=== PATIENT | female | born 1950 | race African-American/Black ===

== ENCOUNTER 2017-10-06 13:37 | Emergency (ER) | payer MEDICARE, MEDICAID ==
[~2017-10-06] VITALS: Ht 170.2 cm; Wt 72.6 kg
[~2017-10-06 13:37] MED LIST: ACETAMINOPHEN-1 EAC1 ORAL; ALBUTEROL SULF8.5 GM INH; ASPIRIN EC81 MG ORAL; ATIVAN0.5 MG PO; AZITHROMYCIN250 MG PO; BACTROBAN 2% OI15 GM TOPIC; BLEPHAMIDE EYE D5 ML LEFT EYE; BUPROPION HCL100 M1; CYCLOBENZAPRINE10 MG ORAL; GUAIFENESIN-CO118 M1 PO; HYDROCHLOROTH12.5 M2; IBUPROFEN600 MG ORAL; KEFLEX500 MG ORAL; NKM; NORCO 5-325 TA1 EACH ORAL; NORCO 5-325 TA1 EACH PO; TRAMADOL HCL100 M1 PO; TRAMADOL HCL100 M2 ORAL; TRAMADOL HCL50 MG PO; TYLENOL EXTRA500 MG ORAL; VICODIN ES 7.51 EACH PO; ZOFRAN ODT4 MG ORAL
--- NOTE | 2017-10-06 14:01 | Emergency Room Report ---
History of Present Illness General Chief Complaint: Upper Extremity Injury Source: Patient Present Illness HPI 67-year-old female no significant past medical history presenting with right hand pain. Patient states that last night she got her hand caught in a gait as it slammed shut onto her hand. States that it ripped off her index finger nail. No bleeding. Neck worsening of pain and swelling to her hand increased with any movement. She has not taken any pain medication. she does not like to take pills. denies any numbness or tingling to her hand Allergies: Coded Allergies: CODEINE (Verified Adverse Reaction, Mild, NAUSEATED, 12/29/11) Patient History Past Medical History: see triage record Past Surgical History: none Pertinent Family History: none Reviewed Nursing Documentation: PMH: Agreed; PSxH: Agreed Nursing Documentation-PMH Past Medical History: No History, Except For Hx Cardiac Problems: Yes - brain aneurysm Hx Hypertension: Yes Hx Neurological Problems: Yes Hx Cerebrovascular Accident: Yes Review of Systems All Other Systems: negative except mentioned in HPI Physical Exam Vital Signs Date Time Temp Pulse Resp B/P (MAP) Pulse Ox O2 Delivery O2 Flow Rate FiO2 10/06/17 13:46 98.0 83 16 162/80 95 Room Air 98.1 Sp02 EP Interpretation: reviewed, normal General Appearance: normal inspection, well appearing, no apparent distress, alert, GCS 15, non-toxic Head: normocephalic, atraumatic Eyes: bilateral eye normal inspection, bilateral eye PERRL, bilateral eye EOMI ENT: normal ENT inspection, normal pharynx, normal voice, moist mucus membranes Neck: normal inspection, full range of motion, supple Respiratory: normal inspection, lungs clear, normal breath sounds, no respiratory distress, no retraction, no wheezing, speaking full sentences, chest symmetrical Cardiovascular #1: normal inspection, regular rate, rhythm, no edema, normal capillary refill Cardiovascular #2: 2+ radial (R), 2+ radial (L) Gastrointestinal: normal inspection, non tender, soft, non-distended, no guarding Musculoskeletal: other - Right hand dorsum noted to have some edema and tender to palpation this is increased with movement however patient does have full range of motion. No snuffbox tenderness. No gross bony deformity. Has full range of motion of wrist. Limited flexion of second and third digit from the MCP joint. Thumb cannot extend and there is inc swelling at MCP joint. however thumb can oppose to other fingers. However otherwise full range of motion of all other fingers. Median ulnar and radial nerve is intact. Radial pulses intact Neurologic: normal inspection, alert, oriented x3, responsive, motor strength/ tone normal, sensory intact, normal gait, speech normal Psychiatric: normal inspection, judgement/insight normal, memory normal Skin: normal inspection, normal color, no rash, warm/dry, well hydrated, normal turgor Procedures Splinting Splinting : Consent: Verbal Location: thumb spica Pre-Made Type: velcro Hand-Made Type: Splint: thumb spica Pre-Proc Neuro Vasc Exam: normal Post-Proc Neuro Vasc Exam: normal Patient Tolerated: Well Complications: None Medical Decision Making Diagnostic Impression: Primary Impression: Dislocation of right thumb Additional Impression: Fracture of third metacarpal bone ER Course 67-year-old female with right hand pain DDX: Contusion vs. fracture Plan: Pain control offered but patient states that she does not like to take any pain medication pills XR ER course: X-ray revealing slight thumb subluxation as well as third metacarpal fracture. I attempted reduction with 1% lidocaine digital block, 4 mL used. Adequate anesthesia obtained. However unable to reduce thumb, extremely unstable I consulted orthopedics, but states that he does not do hand injuries I then consulted to other orthopedic doctors (total 3) however no one is available to come in, or they do not to "hand" injuries anymore. We also called an orthopedic urgent care, but could not take the pt as it is appt only Called [facility], who rejected the case and said this "does not require higher level of care" At this point patient was waiting several hours, she signed out AGAINST MEDICAL ADVICE, states that she can go to [facility] immediately after this. Patient was told that if she does not get her some reduced seen and that this could lead to permanent disability of her thumb. She verbalized understanding Disposition: Patient left AGAINST MEDICAL ADVICE She states that she will go to [facility] right now to see an orthopedic doctor to reduce her thumb Please note that this Emergency Department Report was dictated using [employer] clerk technology software, occasionally this can lead to erroneous entry secondary to interpretation by the dictation equipment. Xray ordered: Right hand 3 view Indication: Pain EP Interpretation: Yes There is suspicion of the nondisplaced acute fracture involving the shaft of the third metacarpal. Please correlate clinically. The bones are osteopenic. Moderate degenerative changes of the first MCP joint of the thumb noted. This joint is mildly subluxed. Arthrosis noted with osteophytes and joint space narrowing involving several interphalangeal joints as well. IMPRESSION: Suspected acute nondisplaced fracture of the third metacarpal Read by radiology Electronically signed by Chiara Barragan MD Xray: Right wrist 3 view Complete Indication: Pain EP Interpretation: Yes Findings: 3 views of the right wrist were obtained. No acute fractures, malalignment, erosions or periostitis are identified. Soft tissues are unremarkable. Bones are osteopenic. Impression: No acute findings. Read by radiology Electronically signed by Chiara Barragan MD Last Vital Signs Date Time Temp Pulse Resp B/P (MAP) Pulse Ox O2 Delivery O2 Flow Rate FiO2 10/06/17 13:46 98.0 83 16 162/80 95 Room Air 98.1 Disposition: HOME, SELF-CARE Condition: Improved Chiara Barragan M.D. Oct 06, 2017 14:01
[2017-10-06] MEDS ORDERED: Lidocaine 1% Plain 30 ml INJ ONE (14:30)
--- NOTE | 2017-10-06 15:08 | Diagnostic Imaging Report ---
Indication: Right wrist pain Findings: 3 views of the right wrist were obtained. No acute fractures, malalignment, erosions or periostitis are identified. Soft tissues are unremarkable. Bones are osteopenic. Impression: No acute findings.
--- NOTE | 2017-10-06 15:10 | Diagnostic Imaging Report ---
Indication: pain Right hand pain Findings: 3 views of the right hand were obtained. There is suspicion of the nondisplaced acute fracture involving the shaft of the third metacarpal. Please correlate clinically. The bones are osteopenic. Moderate degenerative changes of the first MCP joint of the thumb noted. This joint is mildly subluxed. Arthrosis noted with osteophytes and joint space narrowing involving several interphalangeal joints as well. IMPRESSION: Suspected acute nondisplaced fracture of the third metacarpal
[2017-10-06 16:42] VITALS: BP 162/80
== END 2017-10-06 16:42 | disposition left against medical advice (07) ==
LOC: EMR 14:13
DX: S63.004A Unspecified dislocation of right wrist and hand, initial encounter (principal); W23.0XXA Caught, crushed, jammed, or pinched between moving objects, initial encounter; Y92.89 Other specified places as the place of occurrence of the external cause; Z88.5 Allergy status to narcotic agent; I10 Essential (primary) hypertension; Z86.73 Personal history of transient ischemic attack (TIA), and cerebral infarction without residual deficits
CPT/HCPCS: 73110; 73130; 99284; J2001

== ENCOUNTER 2017-11-10 17:30 | Emergency (ER) | payer MEDICARE, MEDICAID ==
[~2017-11-10] VITALS: Ht 172.7 cm; Wt 72.6 kg
[2017-11-10 17:55] VITALS: BP 120/72
[2017-11-10] MEDS ORDERED: Norco 5mg/325mg tab ORAL ONE (18:30)
[2017-11-10] MEDS ORDERED: NORCO 5-325 TA1 EACH ORAL (18:36)
[2017-11-10 18:45] VITALS: BP 118/69
--- NOTE | 2017-11-10 19:09 | Emergency Room Report ---
History of Present Illness General Chief Complaint: Pain Source: Patient, Medical Record Present Illness HPI Patient presents emergency department today complaining of right shoulder pain. Patient apparently has a chronic shoulder pain for months ever since she got a cotton the gait and injured her shoulder. However there's been no recent fracture diagnosis or dislocation diagnoses. Patient is follow with orthopedics and states that she's try to get an appointment. She usually takes pain medications as needed she's out of pain medications. She states that her pain seems to be getting worse she feels sore in that area. She denies any chest pain short his breath denies any nausea vomiting diarrhea chills. Denies any neck pain. Symptoms are chronic and not exertional. No other complaints are noted. Symptoms noted to be moderate. In addition patient states that she feels weak at times but this is been going on for months. She saw her primary care physician was referred for laboratory workup. She has a red he had her blood testing done but she is awaiting results.No other modifying factors. No other associated signs and symptoms. No other complaints were noted. Allergies: Coded Allergies: CODEINE (Verified Adverse Reaction, Mild, NAUSEATED, 12/29/11) Patient History Past Medical History: HTN, other - Brain aneurysm Past Surgical History: none Pertinent Family History: none Social History: Denies: smoking, alcohol use, drug use Reviewed Nursing Documentation: PMH: Agreed; PSxH: Agreed Nursing Documentation-PMH Past Medical History: No History, Except For Hx Cardiac Problems: Yes - brain aneurysm Hx Hypertension: Yes Hx Neurological Problems: Yes Hx Cerebrovascular Accident: Yes Review of Systems All Other Systems: negative except mentioned in HPI Physical Exam Vital Signs Date Time Temp Pulse Resp B/P (MAP) Pulse Ox O2 Delivery O2 Flow Rate FiO2 11/10/17 17:44 98.1 90 18 120/72 95 Room Air 98.1 Sp02 EP Interpretation: reviewed, normal General Appearance: normal inspection, well appearing, no apparent distress, alert Head: atraumatic Eyes: bilateral eye normal inspection ENT: normal ENT inspection, hearing grossly normal, normal voice Neck: normal inspection, full range of motion, supple, no bony tend Respiratory: normal inspection, lungs clear, normal breath sounds, no respiratory distress, no retraction, no wheezing Cardiovascular #1: regular rate, rhythm, no edema Gastrointestinal: normal inspection, normal bowel sounds, non tender, soft, no guarding, no hernia Genitourinary: no CVA tenderness Musculoskeletal: normal inspection, back normal, normal range of motion Neurologic: normal inspection, alert, responsive, speech normal Psychiatric: normal inspection, judgement/insight normal, mood/affect normal Skin: normal inspection, normal color, no rash Medical Decision Making Diagnostic Impression: Primary Impression: Weakness Additional Impression: Shoulder pain, right ER Course Patient presents emergency department today complaint right shoulder pain weakness. Different considerations included lites weakness, depression, shoulder strain just name a few. Patient's exam is completely benign. Patient symptoms have been going on for months. Therefore I do felt that no workup is indicated. However in the event that is atypical presentation of cardiac disease EKG was performed which was noted to be negative. Patient was given a sling and felt much better with just the sling and one tablet [place] therefore felt the patient safe for discharge recommend outpatient follow-up with orthopedics and primary care physician as scheduled.Patient is advised to follow up with primary doctor in 2-3 days and return the emergency room for any worsening symptoms and as needed. EKG Diagnostic Results Rate: normal Rhythm: NSR ST Segments: no acute changes Rhythm Strip Diag. Results EP Interpretation: yes Rate: 80s Rhythm: NSR, no PVC's, no ectopy Last Vital Signs Date Time Temp Pulse Resp B/P (MAP) Pulse Ox O2 Delivery O2 Flow Rate FiO2 11/10/17 18:45 98.1 71 16 118/69 99 Room Air 208.6 Status: improved Disposition: HOME, SELF-CARE Condition: Stable Scripts Hydrocodone Bit/Acetaminophen 5-325* (NORCO 5-325*) 1 Each Tablet 1 TAB ORAL Q6H PRN for For Pain, #10 TAB 0 Refills Prov: Mychal Sarabia MD 11/10/17 Patient Instructions: Shoulder Pain, How to Use a Sling Mychal Sarabia MD Nov 10, 2017 19:09
--- NOTE | 2017-11-11 16:04 | Cardiology Report ---
APPROVED REPORT EKG Measurement Heart [id number] OR [id number] Normal sinus rhythm Normal ECG
== END 2017-11-10 18:50 | disposition home or self-care (01) ==
LOC: EMR 18:10
DX: M25.511 Pain in right shoulder (principal); R53.1 Weakness; I10 Essential (primary) hypertension; Z86.73 Personal history of transient ischemic attack (TIA), and cerebral infarction without residual deficits
CPT/HCPCS: 93005; 99283